=== PATIENT | male | born 1965 | race Hispanic/Latino ===

== ENCOUNTER 2019-04-13 00:18 | Emergency (ER) | payer MEDICARE, OTHER ==
[2019-04-13 00:36] LABS: BASOPHILS % (AUTO) 0.7 % (0.0-5.0); HEMATOCRIT 42.3 % (42-54); MEAN CORPUSCULAR HGB CONC 34.3 g/dL (32.0-36.0); MEAN CORPUSCULAR VOLUME 84.6 fL (79-99); MONOCYTES % (AUTO) 10.8 % (3.0-13.0); NEUTROPHILS % (AUTO) 62.8 % (40.0-77.0); PLATELET COUNT (AUTO) 276 K/uL (130-400); RED CELL DISTRIBUTION WIDTH 12.9 % (11.0-15.5); WHITE BLOOD COUNT (AUTO) 8.7 K/uL (4.8-10.8)
[2019-04-13 00:51] LABS: CREATININE 0.9 mg/dL (0.5-1.5); POTASSIUM 3.7 mmol/L (3.5-5.1)
[2019-04-13 00:57] LABS: ALBUMIN 3.5 g/dL (3.5-5.0); BILIRUBIN,TOTAL 2.1 mg/dL (0.2-1.0); TOTAL PROTEIN, SERUM 7.6 g/dL (6.0-8.3)
[2019-04-13] MEDS ORDERED: BENZONATATE 100 MG CAPSULE PO ONE (01:23)
[2019-04-13] MEDS ORDERED: CEFTRIAXONE SODIUM 1 GM ONE (01:23)
[2019-04-13] MEDS ORDERED: ACETAMINOPHEN EXTRA STRENGTH 500 MG TABLET ONE (01:24)
[2019-04-13] MEDS ORDERED: AZITHROMYCIN 250 MG TABLET PO ONE (01:24)
[2019-04-13] MEDS ORDERED: IPRATROPIUM/ALBUTEROL SULFATE 3 ML SOLUTION IH ONE (01:27)
== END 2019-04-13 03:40 | disposition home or self-care (01) ==
LOC: EDH 00:18
DX: J18.9 Pneumonia, unspecified organism (principal); E11.9 Type 2 diabetes mellitus without complications; I10 Essential (primary) hypertension; Z79.899 Other long term (current) drug therapy
CPT/HCPCS: 36415; 71046; 80053; 82550; 83605; 83880; 84484; 85025; 87804 ×2; 93005; 94640; 96374; 99285; J0696

== ENCOUNTER → 2022-09-27 | Outpatient (CLI) | payer OTHER ==
[~2022-09-27] MED LIST: GADOTERATE MEGLUMINE 10 MMOL/20 ML VIAL IV ONE
== END | disposition home or self-care (01) ==
LOC: RAH 07:38
PROVIDERS: ATTEND Family Medicine
DX: R42 Dizziness and giddiness (principal)
CPT/HCPCS: 70553; A9575

== ENCOUNTER 2022-09-30 03:45 | Inpatient (IN) | payer OTHER ==
[~2022-09-30] VITALS: Ht 165.1 cm; Wt 81.2 kg
[2022-09-30] MEDS ORDERED: KETOROLAC 15MG/ML VIAL (15MG/ML) IV ONE (04:00)
[2022-09-30] MEDS ORDERED: MORPHINE 2 MG SYG IVP ONE (04:00)
[2022-09-30] MEDS ORDERED: ONDANSETRON 4MG INJ IVP ONE (04:00)
[2022-09-30] MEDS ORDERED: LACTATED RINGERS 1000ML 1,000 ML IV ONE (04:00)
[2022-09-30 04:02] LABS: APPEARANCE,URINE CLEAR (CLEAR); BILIRUBIN,URINE NEGATIVE (NEGATIVE); COLOR,URINE YELLOW (YELLOW); GLUCOSE, URINE (UA) 300 mg/dL (NEGATIVE); KETONES,URINE NEGATIVE (NEGATIVE); LEUKOCYTE ESTERASE ,URINE NEGATIVE Leu/uL (NEGATIVE); NITRATE,URINE NEGATIVE (NEGATIVE); OCCULT BLOOD,URINE NEGATIVE (NEGATIVE); PROTEIN,URINE 10 mg/dL (NEGATIVE); UROBILINOGEN,URINE 0.2 mg/dL (0.2-1.0)
[2022-09-30 04:11] LABS: ADD UA MICROSCOPIC YES
[2022-09-30 04:13] LABS: BACTERIA,URINE None Seen /HPF (None Seen); MUCUS,URINE Rare LPF (None Seen); RBC,URINE 0-1 /HPF (0-1); SQUAMOUS EPITHELIAL CELL,UR Rare /HPF (0-2); WBC,URINE 0-1 /HPF (0-1)
[2022-09-30 04:15] LABS: BASOPHILS # (AUTO) 0.07 K/uL (0.00-0.20); BASOPHILS % (AUTO) 0.6 % (0.0-5.0); EOSINOPHILS # (AUTO) 0.11 K/uL (0.00-0.70); EOSINOPHILS % (AUTO) 0.9 % (0.0-8.0); HEMATOCRIT 44.4 % (42-54); IMMATURE GRANULOCYTE ABSOLUTE 0.06 K/uL (0-1); LYMPHOCYTES # (AUTO) 4.6 K/uL (1.0-4.8); LYMPHOCYTES % (AUTO) 39.2 % (21.0-51.0); MEAN CORPUSCULAR HEMOGLOBIN 29.1 pg (27.0-33.0); MEAN CORPUSCULAR HGB CONC 34.2 g/dL (32.0-36.0); MEAN CORPUSCULAR VOLUME 84.9 fL (79-99); MONOCYTES # (AUTO) 0.8 K/uL (0.1-1.0); MONOCYTES % (AUTO) 6.7 % (3.0-13.0); NEUTROPHILS # (AUTO) 6.1 K/uL (1.8-7.7); NEUTROPHILS % (AUTO) 52.1 % (40.0-77.0); PLATELET COUNT (AUTO) 309 K/uL (130-400); RED BLOOD CELL COUNT(AUTO) 5.23 MIL/uL (4.50-6.20); RED CELL DISTRIBUTION WIDTH 12.4 % (11.0-15.5); WHITE BLOOD COUNT (AUTO) 11.8 K/uL (4.8-10.8)
[2022-09-30 04:27] LABS: CREATININE 0.9 mg/dL (0.5-1.5); POTASSIUM 4.1 mmol/L (3.5-5.1)
[2022-09-30 04:31] LABS: ALBUMIN 3.3 g/dL (3.5-5.0); BILIRUBIN,TOTAL 0.3 mg/dL (0.2-1.0)
[2022-09-30] MEDS ORDERED: ONDANSETRON 4MG INJ IVP PRN (05:30)
[2022-09-30] MEDS ORDERED: LABETALOL 20MG SYG IV PRN (05:30)
[2022-09-30] MEDS ORDERED: MORPHINE 2 MG SYG IVP PRN (05:30)
[2022-09-30] MEDS ORDERED: ACETAMINOPHEN 650 MG SUPPOSITORY RC PRN (05:30)
[2022-09-30] MEDS ORDERED: HYDRALAZINE 20MG/ML VIAL IV PRN (05:30)
[2022-09-30] MEDS: INSULIN LISPRO 100 UNIT/ML 3ML SQ SCH ×3 (05:40→18:00)
[2022-09-30] MEDS: LACTATED RINGERS 1000ML 1,000 ML IV SCH ×3 (05:40→20:58)
[2022-09-30 08:00] VITALS: BP 125/77; PULSE 84; RESP 18
[2022-09-30] MEDS: PANTOPRAZOLE 40 MG/VIAL IVP SCH ×2 (09:45→20:57)
[2022-09-30] MEDS: ENOXAPARIN SODIUM 40 MG/0.4 ML SYRINGE SQ SCH (09:49)
[2022-09-30] MEDS: FENOFIBRATE NANOCRYSTALLIZED 145 MG TAB PO SCH (11:29)
[2022-09-30] MEDS: CEFTRIAXONE 2GM VIAL IVPB SCH (11:29)
[2022-09-30 12:00] VITALS: BP 122/47; PULSE 80; RESP 18
[2022-09-30] MEDS: ACETAMINOPHEN 325 MG TAB PO PRN (13:30)
[2022-09-30 16:00] VITALS: BP 116/74; PULSE 72; RESP 18
[2022-09-30 20:00] VITALS: BP 126/71; PULSE 72; RESP 20; O2SAT 100; O2SAT 80
[2022-09-30] MEDS: ATORVASTATIN 40 MG TABLET PO SCH (20:57)
[2022-09-30 23:31] VITALS: BP 114/75; PULSE 75; RESP 20
[2022-10-01] VITALS (26 sets, daily range): BP systolic 116–157; BP diastolic 67–96; PULSE 63–99; RESP 14–20; O2SAT 98–100
[2022-10-01] MEDS: LACTATED RINGERS 1000ML 1,000 ML IV SCH ×3 (01:30→20:32)
[2022-10-01 05:01] LABS: SARS-CoV-2, RNA, NAAT NEGATIVE SARS CoV-2 (NEGATIVE)
[2022-10-01 05:43] LABS: HEMATOCRIT 37.4 % (42-54); MEAN CORPUSCULAR HEMOGLOBIN 29.2 pg (27.0-33.0); MEAN CORPUSCULAR VOLUME 83.5 fL (79-99); RED BLOOD CELL COUNT(AUTO) 4.48 MIL/uL (4.50-6.20); RED CELL DISTRIBUTION WIDTH 12.5 % (11.0-15.5); WHITE BLOOD COUNT (AUTO) 7.7 K/uL (4.8-10.8)
[2022-10-01] MEDS: INSULIN LISPRO 100 UNIT/ML 3ML SQ SCH ×4 (05:46→19:55)
[2022-10-01 05:56] LABS: CREATININE 0.9 mg/dL (0.5-1.5); MAGNESIUM 1.3 mg/dL (1.80-2.40); POTASSIUM 3.9 mmol/L (3.5-5.1)
[2022-10-01 06:03] LABS: INR 0.93 (0.85-1.15); PROTHROMBIN TIME 10.3 SEC (9.6-11.6)
[2022-10-01] MEDS: FENOFIBRATE NANOCRYSTALLIZED 145 MG TAB PO SCH (09:00)
[2022-10-01] MEDS: ENOXAPARIN SODIUM 40 MG/0.4 ML SYRINGE SQ SCH (09:30)
[2022-10-01] MEDS: PANTOPRAZOLE 40 MG/VIAL IVP SCH ×2 (09:30→20:29)
[2022-10-01] MEDS: CEFTRIAXONE 2GM VIAL IVPB SCH (10:11)
[2022-10-01] MEDS: MAGNESIUM 2GM PREMIX 50ML 50 ML IV PRN (11:28)
[2022-10-01] MEDS ORDERED: LIDOCAINE PF 100MG/5ML (2%) SYRINGE 5ML ONE (11:28)
[2022-10-01] MEDS ORDERED: MIDAZOLAM HCL 1 MG/ML 2ML VIAL ONE (11:30)
[2022-10-01] MEDS ORDERED: PROPOFOL 10 MG/ML 20ML VIAL IV ONE (11:31)
[2022-10-01] MEDS ORDERED: ROCURONIUM 10MG/1ML SYR 10 MG/ML ML ONE ×2 (11:31→12:22)
[2022-10-01] MEDS ORDERED: FENTANYL CITRATE PF 50 MCG/1 ML 2ML VIAL ONE ×3 (11:31→14:15)
[2022-10-01] MEDS ORDERED: ACET-2079 PO (11:57)
[2022-10-01] MEDS ORDERED: ONDANSETRON 4MG INJ ONE (11:58)
[2022-10-01] MEDS ORDERED: DEXAMETHASONE SOD PHOSPHATE 4 MG/ML 1ML VIAL ONE (11:58)
[2022-10-01] MEDS ORDERED: BUPIVACAINE/PF 0.5% 30ML VIAL INJ ONE (12:06)
[2022-10-01] MEDS ORDERED: KETOROLAC 30MG VIAL (30MG/ML) ONE (12:27)
[2022-10-01] MEDS ORDERED: GLYCOPYRROLATE 1 MG/5 ML SYRINGE ONE (13:04)
[2022-10-01] MEDS ORDERED: NEOSTIGMINE 5MG/5ML SYR IV ONE (13:04)
[2022-10-01] MEDS ORDERED: MEPERIDINE-PF 25 MG/ML SYG ONE ×2 (13:42→13:50)
[2022-10-01 13:50] LABS: HEMATOCRIT 37.4 % (42-54)
[2022-10-01] MEDS: ATORVASTATIN 40 MG TABLET PO SCH (20:29)
[2022-10-01] MEDS: KETOROLAC 15MG/ML VIAL (15MG/ML) IV PRN (20:31)
[2022-10-02] MEDS: INSULIN LISPRO 100 UNIT/ML 3ML SQ SCH ×3 (00:46→11:29)
[2022-10-02 03:14] VITALS: BP 129/77; PULSE 85; RESP 16
[2022-10-02] MEDS: LACTATED RINGERS 1000ML 1,000 ML IV SCH ×2 (03:17→10:50)
[2022-10-02 04:50] LABS: HEMATOCRIT 35.9 % (42-54); MEAN CORPUSCULAR HEMOGLOBIN 29.4 pg (27.0-33.0); MEAN CORPUSCULAR HGB CONC 34.3 g/dL (32.0-36.0); MEAN CORPUSCULAR VOLUME 85.9 fL (79-99); RED BLOOD CELL COUNT(AUTO) 4.18 MIL/uL (4.50-6.20); RED CELL DISTRIBUTION WIDTH 12.6 % (11.0-15.5); WHITE BLOOD COUNT (AUTO) 10.1 K/uL (4.8-10.8)
[2022-10-02 05:03] LABS: HEMOGLOBIN A1C 9.5 % (4.0-6.0)
[2022-10-02 05:07] LABS: MAGNESIUM 1.6 mg/dL (1.80-2.40)
[2022-10-02] MEDS: MAGNESIUM 2GM PREMIX 50ML 50 ML IV PRN (05:24)
[2022-10-02 08:00] VITALS: BP 147/85; PULSE 96; RESP 16; O2SAT 98
[2022-10-02] MEDS: PANTOPRAZOLE 40 MG/VIAL IVP SCH (08:21)
[2022-10-02] MEDS: FENOFIBRATE NANOCRYSTALLIZED 145 MG TAB PO SCH (08:21)
[2022-10-02] MEDS: ENOXAPARIN SODIUM 40 MG/0.4 ML SYRINGE SQ SCH (08:21)
[2022-10-02] MEDS: KETOROLAC 15MG/ML VIAL (15MG/ML) IV PRN (08:22)
[2022-10-02] MEDS: CEFTRIAXONE 2GM VIAL IVPB SCH (10:06)
[2022-10-02 12:00] VITALS: BP 129/78; PULSE 89; RESP 17
[2022-10-02] MEDS ORDERED: DOCU-116 PO (15:19)
[2022-10-02] MEDS: ACETAMINOPHEN 325 MG TAB PO PRN (17:08)
== END 2022-10-02 17:30 | disposition home or self-care (01) | DRG 417 ==
LOC: EDH 03:45 → EDHIP 05:20 → OBSVTOIN 05:20 → INTOOBSV 05:20 → 3CH 08:32
PROVIDERS: ADMIT Internal Medicine; ATTEND Internal Medicine
PROC: 0FT44ZZ Resection of Gallbladder, Percutaneous Endoscopic Approach (ICD-10-PCS; principal; 2022-10-01 11:42)
DX: K80.00 Calculus of gallbladder with acute cholecystitis without obstruction (principal); K85.10 Biliary acute pancreatitis without necrosis or infection; Z20.822 Contact with and (suspected) exposure to COVID-19; E11.40 Type 2 diabetes mellitus with diabetic neuropathy, unspecified; E11.65 Type 2 diabetes mellitus with hyperglycemia; E78.1 Pure hyperglyceridemia; G40.909 Epilepsy, unspecified, not intractable, without status epilepticus; I10 Essential (primary) hypertension; K82.8 Other specified diseases of gallbladder
CPT/HCPCS: 36415; 74176; 76700; 80048; 80053; 80061; 81001; 82550; 82948; 83036; 83690; 83735; 84478; 84484; 85014; 85018; 85025; 85027; 85610; 87635; 93005; C9113; G0378; J0696; J1100; J1650; J1815; J1885; J2001; J2175; J2250; J2270; J2405; J2704; J2710; J3010; J3475; J3490; A4215; A4221; A4222; A4223; A4600; A4663

== ENCOUNTER 2024-11-01 22:00 | Emergency (ER) | payer OTHER ==
[~2024-11-01] VITALS: Ht 152.4 cm; Wt 81.6 kg
[~2024-11-01 22:00] MED LIST changes: +ACET-2079 PO; +DOCU-116 PO; -GADOTERATE MEGLUMINE 10 MMOL/20 ML VIAL IV ONE
--- NOTE | 2024-11-01 22:00 | NUR ---
UA CUP PROVIDED
--- NOTE | 2024-11-01 22:03 | NUR ---
REPORT TO TIKA GARCIA
--- NOTE | 2024-11-01 22:31 | ERN ---
ED Note History of Present Illness Stated Complaint: ABD PAIN, VOMITING Chief Complaint: Abdominal Pain Time Seen by MD: 22:29 Time Seen by Midlevel: 22:32 Dictation: Mr. Flores is a 59-year-old gentleman with history of type 2 diabetes, hypertension, " kidney problems", hyperlipidemia, obesity, and hx cholecystectomy presented to the emergency department this evening for eval uation of abdominal pain. He reports abdominal/epigastric pain which he rates 8/10 radiating to the mid back and accompanied by nausea with emesis x2 today. He states he has been experiencing similar symptoms intermittently for the past month. He states he was had a BM today but it was difficult to go. Allergies: Coded Allergies: No Known Drug Allergies (Unverified Allergy, Unknown, 04/13/19) Emergency Care RN LACTATION CONSULTANT: None Home Meds Active Scripts Polyethylene Glycol 3350 (Miralax) 17 Gram Powd.pack, 1 PACKET PO DAILY for constipation for 2 Days, #6 PACKET 0 Refills dissolve in water Prov:MADIE ARAMBULA NP 11/02/24 Ondansetron (Ondansetron Odt) 4 Mg Tab.rapdis, 4 MG PO Q6HPRN PRN for nausea, #15 TAB 0 Refills Prov:MADIE ARAMBULA NP 11/02/24 Famotidine (Pepcid) 20 Mg Tablet, 1 TAB PO BID for 30 Days, #60 TAB 0 Refills Prov:MADIE ARAMBULA NP 11/02/24 Docusate Sodium (Colace) 100 Mg Capsule, 100 MG PO BID for 30 Days, #60 CAP Prov:JULIANNA REYES NP 10/02/22 Acetaminophen with Codeine (Acetaminophen-Cod #3 Tablet) 1 Each Tablet, 1 EACH PO Q4HPRN PRN for PAIN LEVEL 6 TO 10, #30 TAB Prov:JOHN CALIXTO MD 10/01/22 Past Medical History Past Medical History: Diabetes-Type II, High Cholesterol, Hypertension, Pancreatitis Surgical History: Cholecystectomy Surgical History Other: ( POR HISTORIAN UNSURE OF CHOLECYSTECTOMY) PSYCH History: no pertinent psych hx Social History: Negative, Lives with family RN Note Reviewed/Agreed w/PFSH: Yes Review of System Dictation REVIEW OF SYSTEMS: CONSTITUTIONAL: Patient denies fevers, chills, sweats and weight changes. EYES: Patient denies any visual symptoms. EARS, NOSE, AND THROAT: No difficulties with hearing. No symptoms of rhinitis or sore throat. CARDIOVASCULAR: Patient denies chest pains, palpitations, orthopnea and paroxysmal nocturnal dyspnea. RESPIRATORY: No dyspnea on exertion, no wheezing or cough. GI: No diarrhea, constipation, hematemesis, hematochezia or melena. Reports upper abdominal pain radiating to the back which he rated 8/10 accompanied by nausea and emesis x2. States he has been having similar episodes intermittently for the past month. He states that he had a BM today but it was hard to go : No urinary hesitancy or dribbling. No nocturia or urinary frequency. No abnormal urethral discharge. MUSCULOSKELETAL: No myalgias or arthralgias. NEUROLOGIC: No chronic headaches, no seizures. Patient denies numbness, tingling or weakness. PSYCHIATRIC: Patient denies problems with mood disturbance. No problems with anxiety. ENDOCRINE: No excessive urination or excessive thirst. DERMATOLOGIC: Patient denies any rashes or skin changes. Initial Vital Sign VS Vital Signs Date Time Temp Pulse Resp B/P (MAP) Pulse Ox O2 Delivery O2 Flow Rate FiO2 11/01/24 22:01 97.5 83 16 168/97 97 Room Air 11/02/24 01:08 0 21 Physical Exam Dictation Vital signs: Reviewed. Afebrile Constitutional: No acute distress. Non-toxic appearing. Pleasant, calm Head/Face: Normocephalic, atraumatic. Eyes: Periorbital areas with no swelling, redness, or edema. Lids and lashes are normal. Conjunctival injection is absent. Sclera anicteric. Pupils equal, round, reactive to light. ENT: Pinnas intact and no signs of trauma or erythema. Ear canals clear and no discharge. TMs no erythema. No nasal discharge or bleeding noted. Oropharynx with no exudate, redness, swelling, masses, exudates, or evidence of obstruction. Uvula midline. Mucous membranes moist. Neck: Trachea midline, no masses palpated, and no cervical lymphadenopathy. No swelling. Supple, full range of motion. Chest/Axilla: No tenderness, no crepitus, no paradoxical movement, no retractions. Cardiovascular: Regular rate, regular rhythm, no murmur, no gallops. Symmetric pulses. No peripheral edema. BP elevated 168/97 Respiratory: Respirations even and unlabored. Lung sounds clear; no wheezes, rales or rhonchi. Room air SpO2 97%. Gastrointestinal: Inspection is normal. No distention is appreciated. Bowel sounds are normal. No mass or organomegaly . There is marked tenderness upon palpation of the epigastrium.. No rebound. No rigidity. No voluntary or involuntary guarding. No Rothman's sign. Neurological: Normal speech, gross motor function intact, gross sensory function intact. No focal weakness/Paresthesia. : Negative CVA tenderness bilaterally Musculoskeletal/Extremities: All extremities have full range of motion, no pain or tenderness on palpation. Symmetric pulses. Integumentary: Intact. Skin is normal color, warm and dry. Cap refill less than 3 seconds. Results (Laboratory/Radiology) Laboratory/Radiology Laboratory Tests Test 11/01/24 22:04 11/01/24 22:32 Urine Color LIGHT-YELLOW (YELLOW) Urine Appearance CLEAR (CLEAR) Urine pH 5.5 (5.0-8.0) Urine Specific [place] 1.025 (1.001-1.031) Urine Protein NEGATIVE mg/dL (NEGATIVE) Urine Glucose (UA) >=1000 mg/dL (NEGATIVE) H Urine Ketones NEGATIVE mg/dL (NEGATIVE) Urine Occult Blood NEGATIVE (NEGATIVE) Urine Nitrate NEGATIVE (NEGATIVE) Urine Bilirubin NEGATIVE mg/dL (NEGATIVE) Urine Urobilinogen 0.2 mg/dL (0.2-1.0) Urine Leukocyte Esterase NEGATIVE [place]/uL Urine RBC 0-1 /HPF (0-1) Urine WBC None /HPF (0-1) Urine Bacteria None /HPF (None Seen) White Blood Count 7.5 K/uL (4.8-10.8) Red Blood Count 4.79 MIL/uL (4.50-6.20) Hemoglobin 14.3 g/dL (14.0-18.0) Hematocrit 40.7 % (42-54) L Mean Corpuscular Volume 85.0 fL (79-99) Mean Corpuscular Hemoglobin 29.9 pg (27.0-33.0) Mean Corpuscular Hemoglobin Concent 35.1 g/dL (32.0-36.0) Red Cell Distribution Width 13.3 % (11.0-15.5) Platelet Count 304 K/uL (130-400) Mean Platelet Volume 10.6 fL (7.5-10.5) H Immature Granulocyte % (Auto) 0.8 % (0-1) Neutrophils (%) (Auto) 53.0 % (40.0-77.0) Lymphocytes (%) (Auto) 37.0 % (21.0-51.0) Monocytes (%) (Auto) 7.2 % (3.0-13.0) Eosinophils (%) (Auto) 1.2 % (0.0-8.0) Basophils (%) (Auto) 0.8 % (0.0-5.0) Neutrophils # (Auto) 4.0 K/uL (1.8-7.7) Lymphocytes # (Auto) 2.8 K/uL (1.0-4.8) Monocytes # (Auto) 0.5 K/uL (0.1-1.0) Eosinophils # (Auto) 0.09 K/uL (0.00-0.70) Basophils # (Auto) 0.06 K/uL (0.00-0.20) Absolute Immature Granulocyte (auto 0.06 K/uL (0-1) Nucleated Red Blood Cells 0.0 % (0.0-0.19) Sodium Level 139 mmol/L (136-145) Potassium Level 3.8 mmol/L (3.5-5.1) Chloride Level 104 mmol/L (101-111) Carbon Dioxide Level 30 mmol/L (21-32) Blood Urea Nitrogen 13 mg/dL (7-18) Creatinine 1.0 mg/dL (0.5-1.3) Glomerular Filtration Rate Calc 87 mL/min (>90) Random Glucose 325 mg/dL (70-105) H Total Calcium 8.7 mg/dL (8.5-10.1) Total Bilirubin 0.6 mg/dL (0.2-1.0) Direct Bilirubin 0.2 mg/dL (0.0-0.3) Aspartate Amino Transf (AST/SGOT) 73 U/L (10-37) H Alanine Aminotransferase (ALT/SGPT) 44 U/L (12-78) Alkaline Phosphatase 140 U/L (50-136) H Troponin I High Sensitivity 5 ng/L (4-75) Total Protein 6.8 g/dL (6.0-8.3) Albumin 3.3 g/dL (3.5-5.0) L Lipase 88 U/L (16-77) H Labs Reviewed?: Yes EKG Comment: EKG Interpretation: Time Reviewed: 2305 Ventricular rate: 77 bpm NH Interval: 157 ms QRS duration: [address] segment elevation or depression. Clinical impression: Sinus rhythm with right bundle-branch block EKG Reviewed and interpreted by Dr. Weir CT Scan Comment: PATIENT: WILY FLORES MR#: [id number] : 1965 SEX: M AGE: 59 LOCATION: [facility] ORDER 50 STATUS: [facility] REPORT#: [id number] SERVICE 50 REASON: epigastric pain/left sided abdominal pain ORDERING PHYSICIAN: MADIE ARAMBULA NP PROCEDURE: ABD PEL W - CT ABDOMEN/PELVIS W/CONTRAST EXAM: CT Abdomen and Pelvis with IV contrast. CLINICAL HISTORY: Epigastric pain. Left-sided abdominal pain. TECHNIQUE: Thin collimated axial CT images of the abdomen and pelvis were obtained, with sagittal and coronal reformatted images also submitted. A CT scan is done according to ALARA (As Low As Reasonably Achievable). CONTRAST: Omnipaque 350 COMPARISON: CT scan of the abdomen and pelvis. Dated 09/30/2022. FINDINGS: Unremarkable visualized lung parenchyma. There is no focal abnormality appreciated within the liver, pancreas, spleen, adrenals, or kidneys. Interval post-cholecystectomy status. There is a 2 cm splenunculus. There is mild inflammatory thickening of the small bowel loops on the left side of the abdomen. Mild constipation. The appendix is unremarkable. There is no abnormality within the urinary bladder. Unremarkable reproductive organs. No lymphadenopathy. No free fluid. No pneumoperitoneum. No gross abnormality in the abdominal vessels. There is no acute osseous abnormality. IMPRESSIONS: Mild jejunitis. There is an interval cholecystectomy. /[place] DICTATED BY: ALEXANDREA SORIA Jr., MD DATE: 11/02/24217 ELECTRONICALLY SIGNED BY: ALEXANDREA SORIA Jr., MD DATE: 11/02/24217 ED Course ED Course Orders Procedure Category Date Status Time Vital Signs Per CPOE 11/01/24 Transmitted Routine 22:23 Saline Lock Iv CPOE 11/01/24 Transmitted 22:23 Cbc With Differential LAB 11/01/24 Complete 22:23 Lipase LAB 11/01/24 Complete 22:23 Urinalysis Profile LAB 11/01/24 Complete 22:23 Basic Metabolic Panel LAB 11/01/24 Complete 22:23 Hepatic Function Panel LAB 11/01/24 Complete 22:30 Ondansetron 4mg Inj PHA 11/01/24 Complete (Zofran 4mg Inj) 23:00 Hydromorphone 0.5mg PHA 11/01/24 Complete Syg (Dilaudid 0.5mg 23:00 Ct Abdomen/Pelvis CT 11/01/24 Resulted W/Contrast 22:51 12 Lead Ekg Tracing- EKG 11/01/24 Complete Technical 22:51 Troponin I High LAB 11/01/24 Complete Sensitivity 22:51 Iohexol (Omnipaque) PHA 11/02/24 Complete 00:06 0.9%Nacl 1000ml (Ns PHA 11/02/24 Complete 1000ml) 02:30 Mag/Alum/Simeth 30ml PHA 11/02/24 Complete (Maalox Plus 30ml) 02:30 Lidocaine Hcl 2% PHA 11/02/24 Complete Viscous (Lidocaine Hcl 02:30 Dicyclomine Hcl PHA 11/02/24 Complete (Bentyl 10mg/5ml 02:30 Current Medications Medications (Trade) Dose Ordered Sig/Fiorella Route PRN Reason Start Time Stop Time Status Last Admin Dose Admin Al Hydroxide/Mg Hydroxide (MAALox PLUS 30ML) 30 ml ONCE ONCE PO 11/02/24 02:30 11/02/24 02:31 DC 11/02/24 02:31 Dicyclomine HCl (Bentyl 10mg/5ml Syrup) 10 mg ONCE ONCE PO 11/02/24 02:30 11/02/24 02:31 DC 11/02/24 02:31 Hydromorphone HCl (DiLAUDid 0.5MG INJ) 0.5 mg ONCE ONCE IVP 11/01/24 23:00 11/01/24 23:01 DC 11/01/24 23:31 Iohexol (Omnipaque) 35,000 mg STK-MED ONCE IV 11/02/24 00:06 11/02/24 00:07 DC Lidocaine HCl (Lidocaine HCl 2% Viscous) 10 ml ONCE ONCE PO 11/02/24 02:30 11/02/24 02:31 DC 11/02/24 02:31 Ondansetron HCl (zoFRAN 4MG INJ) 4 mg ONCE ONCE IVP 11/01/24 23:00 11/01/24 23:01 DC 11/01/24 23:31 Sodium Chloride 1,000 ml @ 0 mls/hr ONCE ONCE IV 11/02/24 02:30 11/02/24 02:31 DC 11/02/24 02:31 Vital Signs Date Time Temp Pulse Resp B/P (MAP) Pulse Ox O2 Delivery O2 Flow Rate FiO2 11/02/24 01:08 97.9 69 18 144/85 99 Room Air* 0 21 11/01/24 22:01 97.5 83 16 168/97 97 Room Air No signs are stable; afebrile and normotensive with room air SpO2 99%. Reported epigastric pain radiating to the back accompanied by nausea. Laboratory findings as noted below. HCT 40.7, glucose 325, AST 73, ALP 140, albumin 3.3, and lipase 88. Troponin is negative. UA with glucose greater than 1000. Inferior abdomen and pelvis with IV contrast revealed mild jejunitis and constipation; no abnormalities noted in pancreas, kidneys, liver, or appendix. He received doses Zofran, Dilaudid, GI cocktail and NS 1000 mL IV as bolus. He states symptoms resolving and requests to go home. States he will follow up with his PCP on Monday. Medical Decision Making MDM MDM: Differential diagnosis: Pancreatitis, acute dehydration, bowel obstruction, constipation Rationale: Tests considered and ordered secondary to shared decision making include: Lab, CT Previous outside records reviewed: Old ER visits. Risk of complication and/or morbidity or mortality of patient management: None Medications-Per medication reconciliation Need for hospitalization: Patient does not meet criteria for hospitalization. Need for emergency major/minor surgery: No There are no social concerns with this patient. Prescription drug management: MiraLax, Zofran, Pepcid Prescriptions will include symptomatic care Patient's prior external medical records from other ER visits were reviewed by me as indicated. Prior testing and results from previous visits were reviewed. Prior tests were taken into account with medical decision making and resource utilization, independent historian/historians were used to obtain complete medical history. I independently interpreted the test that were performed, results were reviewed by me and considered findings on radiology if ordered. Medical management and examination interpretation discussions were had by me with other qualified healthcare professionals as indicated for the patient's care. DX & DISP Disposition: Discharge Departure Impression: Primary Impression: Epigastric abdominal pain Additional Impressions: Jejunitis, type II DM wtih hyperglycemia, Constipation, Gastritis Condition: Stable Scripts Polyethylene Glycol 3350 (Miralax) 17 Gram Powd.pack 1 PACKET PO DAILY for constipation for 2 Days, #6 PACKET 0 Refills dissolve in water Prov: MADIE ARAMBULA NP 11/02/24 Ondansetron (Ondansetron Odt) 4 Mg Tab.rapdis 4 MG PO Q6HPRN PRN for nausea, #15 TAB 0 Refills Prov: MADIE ARAMBULA NP 11/02/24 Famotidine (Pepcid) 20 Mg Tablet 1 TAB PO BID for 30 Days, #60 TAB 0 Refills Prov: MADIE ARAMBULA NP 11/02/24 Additional Instructions: Rest. Drink plenty of fluids/increase fluid intake. Small, bland meals. Start Pepcid twice daily for the next month. May take Zofran ODT every 6 hours as needed for nausea. MiraLax once daily. Please return immediately to the emergency department should you develop worsening abdominal pain, persistent vomiting/unable to keep down fluids, abdominal swelling/distention, diarrhea, or worsening constipation. With your PCP early next week. Referrals: JONATHAN MANLEY MD (PCP) Time of Disposition: 03:00 MADIE ARAMBULA NP Nov 01, 2024 22:31
--- NOTE | 2024-11-01 22:42 | NUR ---
PT STATES GALLBLADDER REMOVED IN JUNE OF THIS YEAR. REPORTS TODAYS PAIN STARTED 1 MONTH AGO BUT WAS WORSE TODAY. LAST MEAL WAS [facility].
[2024-11-01 22:48] LABS: IMMATURE GRANULOCYTE ABSOLUTE 0.06 K/uL (0-1); NUCLEATED RED BLOOD CELLS 0.0 % (0.0-0.19); PLATELET COUNT (AUTO) 304 K/uL (130-400); RED BLOOD CELL COUNT(AUTO) 4.79 MIL/uL (4.50-6.20); RED CELL DISTRIBUTION WIDTH 13.3 % (11.0-15.5); WHITE BLOOD COUNT (AUTO) 7.5 K/uL (4.8-10.8)
[2024-11-01] MEDS ORDERED: IOHEXOL 350 MG/ML 100ML INFUS..BTL IV ONE (22:51)
[2024-11-01 22:56] LABS: CREATININE 1.0 mg/dL (0.5-1.3); GLOMERULAR FILTR. RATE CALC 87.0 mL/min (>90); GLUCOSE,RANDOM 325.0 mg/dL (70-105); SODIUM SERUM 139.0 mmol/L (136-145); UREA NITROGEN, BLOOD 13.0 mg/dL (7-18)
--- NOTE | 2024-11-01 23:12 | EKG ---
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
[2024-11-01 23:35] LABS: ASPARTATE AMINOTRANSFERASE 73.0 U/L (10-37); TOTAL PROTEIN, SERUM 6.8 g/dL (6.0-8.3)
[2024-11-01 23:59] LABS: APPEARANCE,URINE CLEAR (CLEAR); GLUCOSE, URINE (UA) >=1000 mg/dL (NEGATIVE); LEUKOCYTE ESTERASE ,URINE NEGATIVE Leu/uL (NEGATIVE); NITRATE,URINE NEGATIVE (NEGATIVE); OCCULT BLOOD,URINE NEGATIVE (NEGATIVE)
[2024-11-02] LABS: ADD UA MICROSCOPIC YES
[2024-11-02] MEDS ORDERED: IOHEXOL 350 MG/ML 100ML INFUS..BTL IV ONE (00:06)
[2024-11-02 01:08] VITALS: TEMP 97.9
--- NOTE | 2024-11-02 01:20 | HMCIMG ---
EXAM: CT Abdomen and Pelvis with IV contrast. CLINICAL HISTORY: Epigastric pain. Left-sided abdominal pain. TECHNIQUE: Thin collimated axial CT images of the abdomen and pelvis were obtained, with sagittal and coronal reformatted images also submitted. A CT scan is done according to ALARA (As Low As Reasonably Achievable). CONTRAST: Omnipaque 350 COMPARISON: CT scan of the abdomen and pelvis. Dated 09/30/2022. FINDINGS: Unremarkable visualized lung parenchyma. There is no focal abnormality appreciated within the liver, pancreas, spleen, adrenals, or kidneys. Interval post-cholecystectomy status. There is a 2 cm splenunculus. There is mild inflammatory thickening of the small bowel loops on the left side of the abdomen. Mild constipation. The appendix is unremarkable. There is no abnormality within the urinary bladder. Unremarkable reproductive organs. No lymphadenopathy. No free fluid. No pneumoperitoneum. No gross abnormality in the abdominal vessels. There is no acute osseous abnormality. IMPRESSIONS: Mild jejunitis. There is an interval cholecystectomy. /[place]
[2024-11-02] MEDS: 0.9%NACL 1000ML 1,000 ML IV ONE (02:31)
[2024-11-02] MEDS: MAG/ALUM/SIMETH 30 ML UDCUP PO ONE (02:31)
[2024-11-02] MEDS: DICYCLOMINE HCL 10 MG/5 ML ML PO ONE (02:31)
[2024-11-02] MEDS: LIDOCAINE HCL 2% VISCOUS 15 ML UDCUP PO ONE (02:31)
[2024-11-02] MEDS ORDERED: FAMO-136 PO (02:58)
[2024-11-02] MEDS ORDERED: ONDA-243 PO (02:58)
[2024-11-02] MEDS ORDERED: POLY17PO4 PO (03:01)
[2024-11-02 03:24] VITALS: BP 138/80; PULSE 71; RESP 16; O2SAT 98
== END 2024-11-02 03:36 | disposition home or self-care (01) ==
LOC: EDH 22:00
DX: R10.13 Epigastric pain (principal); K52.9 Noninfective gastroenteritis and colitis, unspecified; E11.65 Type 2 diabetes mellitus with hyperglycemia; K59.00 Constipation, unspecified; K29.70 Gastritis, unspecified, without bleeding; E78.00 Pure hypercholesterolemia, unspecified; I10 Essential (primary) hypertension; Z90.49 Acquired absence of other specified parts of digestive tract
CPT/HCPCS: 99285; 74177; 96374; 96375; 80076; 84484; 80048; 83690; 85025; 81001; 36415; 93005; 96361; J2405; J1171; Q9967; J7030